=== PATIENT | male | born 1950 | race Caucasian/White ===

== ENCOUNTER → 2019-09-13 | Outpatient (CLI) | payer OTHER ==
[~2019-09-13] MED LIST: Bactrim 400-801 EACH PO; MAGOXI400 PO; METO25 PO; Multiple Vitam1 EAC1 PO; PANT40 PO; PRED5 PO; ROSU10TA PO; SODBIC650 PO; TACR1 PO; VITAMIN D32000 UNI1 PO; WARF2 PO
[2019-09-13 16:08] LABS: Creatinine Urine 46.9 mg/dL (27.00-270.00)
== END | disposition home or self-care (01) ==
LOC: OLS 14:44 → LAB SHORT 14:44 → LAB FUT 09-09 12:20
PROVIDERS: Internal Medicine
DX: N18.4 Chronic kidney disease, stage 4 (severe) (principal)
CPT/HCPCS: 81050; 82570; 84156

== ENCOUNTER 2019-09-20 12:47 | Inpatient (IN) | payer OTHER, MEDICARE ==
[~2019-09-20 12:47] MED LIST changes: -VITAMIN D32000 UNI1 PO; +Vitamin D2000 UNIT PO
[2019-09-20] MEDS ORDERED: Myfortic360 MG PO (13:17)
[2019-09-20] MEDS ORDERED: ALOGLIPTIN12.5 MG PO (13:18)
[2019-09-20 13:22] LABS: BASOPHILS ABSOLUTE AUTO 0.01 K/mm3 (0.00-0.23); BASOPHILS PERCENT AUTO 0 % (0-2); EOSINOPHILS ABSOLUTE AUTO 0.03 K/mm3 (0.00-0.68); EOSINOPHILS PERCENT AUTO 0 % (0-6); Hematocrit 25.4 % (37.0-53.0); Hemoglobin 8.1 g/dL (13.5-17.5); IMMATURE GRAN ABSOLUTE AUTO 0.05 K/mm3 (0.00-0.10); IMMATURE GRAN PERCENT AUTO 1 % (0-1); LYMPHOCYTES PERCENT AUTO 20 % (21-46); MONOCYTES ABSOLUTE AUTO 0.46 K/mm3 (0.16-1.47); MONOCYTES PERCENT AUTO 6 % (4-13); Mean Corpuscular HGB 30.8 pg (26.0-34.0); Mean Corpuscular HGB Conc 31.9 g/dL (31.5-36.5); Mean Corpuscular Volume 97 fL (80-100); Mean Platelet Volume 9.4 fL (9.1-12.4); NEUTROPHILS ABSOLUTE AUTO 5.53 K/mm3 (1.96-9.15); NEUTROPHILS PERCENT AUTO 73 % (41-73); Platelet Count 204 K/mm3 (150-400); RDW Coefficient Variation 14.5 % (11.7-14.2); RDW Standard Deviation 50.5 fL (35.1-46.3); Red Blood Cell Count 2.63 M/mm3 (4.30-5.90); White Blood Cell Count 7.58 K/mm3 (4.00-11.30)
[2019-09-20 13:37] LABS: International Normalized Ratio 2.33; Prothrombin Time Results 23.8 Sec (9.7-11.5)
[2019-09-20 13:41] LABS: Albumin, Blood 3.5 g/dL (3.4-5.0); Albumin/Globulin Ratio 1.2 (0.8-1.8); Bilirubin, Total 0.3 mg/dL (0.1-1.0); Calcium, Blood 7.9 mg/dL (8.5-10.1); Creatinine, Blood 5.63 mg/dL (0.60-1.20); Potassium, Blood 5.6 mmol/L (3.5-5.5); Total Protein, Blood 6.5 g/dL (6.4-8.2)
[2019-09-20 13:44] LABS: A. Partial Thromboplastin Time 36.2 Sec (25.0-34.0); Phosphorus, Blood 5.8 mg/dL (2.5-4.9)
[2019-09-20] MEDS ORDERED: WARF4 PO (14:20)
[2019-09-20] MEDS ORDERED: Coumadin2 MG PO ×2 (14:20→14:21)
[2019-09-20] MEDS ORDERED: TACROLIMUS0.5 MG PO (14:22)
[2019-09-20] MEDS ORDERED: TACR1 PO (14:22)
[2019-09-20] MEDS ORDERED: AMLODIPINE BES2.5 MG PO (14:24)
[2019-09-20 19:20] LABS: Albumin, Blood 3.4 g/dL (3.4-5.0); Anion Gap 13 mmol/L (6-16); Blood Urea Nitrogen 77 mg/dL (8-24); Bun/Creatinine Ratio 13.7 (12.0-20.0); CO2, Blood 17 mmol/L (21-32); Calcium, Blood 7.7 mg/dL (8.5-10.1); Chloride, Blood 110 mmol/L (98-108); Creatinine, Blood 5.61 mg/dL (0.60-1.20); Glomerular Filtration Rate 11 (60-); Glucose, Blood 156 mg/dL (70-99); Phosphorus, Blood 5.4 mg/dL (2.5-4.9); Potassium, Blood 5.1 mmol/L (3.5-5.5); Sodium, Blood 140 mmol/L (136-145)
[2019-09-21 00:21] LABS: Hematocrit 22.1 % (37.0-53.0); Hemoglobin 7.1 g/dL (13.5-17.5); Mean Corpuscular HGB 30.7 pg (26.0-34.0); Mean Corpuscular HGB Conc 32.1 g/dL (31.5-36.5); Mean Corpuscular Volume 96 fL (80-100); Mean Platelet Volume 9.6 fL (9.1-12.4); Platelet Count 176 K/mm3 (150-400); RDW Coefficient Variation 14.4 % (11.7-14.2); RDW Standard Deviation 50.2 fL (35.1-46.3); Red Blood Cell Count 2.31 M/mm3 (4.30-5.90); White Blood Cell Count 6.19 K/mm3 (4.00-11.30)
[2019-09-21 00:36] LABS: Albumin, Blood 3.1 g/dL (3.4-5.0); Anion Gap 12 mmol/L (6-16); Blood Urea Nitrogen 81 mg/dL (8-24); Bun/Creatinine Ratio 14.4 (12.0-20.0); CO2, Blood 17 mmol/L (21-32); Calcium, Blood 7.6 mg/dL (8.5-10.1); Chloride, Blood 110 mmol/L (98-108); Creatinine, Blood 5.63 mg/dL (0.60-1.20); Glomerular Filtration Rate 11 (60-); Glucose, Blood 109 mg/dL (70-99); Phosphorus, Blood 5.9 mg/dL (2.5-4.9); Potassium, Blood 4.7 mmol/L (3.5-5.5); Sodium, Blood 139 mmol/L (136-145)
[2019-09-21 00:47] LABS: A. Partial Thromboplastin Time 92.8 Sec (25.0-34.0)
[2019-09-21 10:34] LABS: International Normalized Ratio 1.97; Prothrombin Time Results 20.3 Sec (9.7-11.5)
[2019-09-21 10:38] LABS: A. Partial Thromboplastin Time 112.7 Sec (25.0-34.0)
[2019-09-21 18:36] LABS: A. Partial Thromboplastin Time 108.2 Sec (25.0-34.0)
[2019-09-22 01:02] LABS: A. Partial Thromboplastin Time 96.6 Sec (25.0-34.0)
[2019-09-22 08:28] LABS: BASOPHILS ABSOLUTE AUTO 0.02 K/mm3 (0.00-0.23); BASOPHILS PERCENT AUTO 0 % (0-2); EOSINOPHILS PERCENT AUTO 2 % (0-6); Hematocrit 26.9 % (37.0-53.0); IMMATURE GRAN ABSOLUTE AUTO 0.02 K/mm3 (0.00-0.10); IMMATURE GRAN PERCENT AUTO 0 % (0-1); LYMPHOCYTES ABSOLUTE AUTO 1.54 K/mm3 (0.84-5.20); LYMPHOCYTES PERCENT AUTO 24 % (21-46); MONOCYTES ABSOLUTE AUTO 0.58 K/mm3 (0.16-1.47); MONOCYTES PERCENT AUTO 9 % (4-13); Mean Corpuscular HGB 30.6 pg (26.0-34.0); Mean Corpuscular HGB Conc 33.5 g/dL (31.5-36.5); Mean Platelet Volume 9.4 fL (9.1-12.4); NEUTROPHILS ABSOLUTE AUTO 4.24 K/mm3 (1.96-9.15); NEUTROPHILS PERCENT AUTO 65 % (41-73); Platelet Count 185 K/mm3 (150-400); RDW Coefficient Variation 14.5 % (11.7-14.2); RDW Standard Deviation 48.7 fL (35.1-46.3); Red Blood Cell Count 2.94 M/mm3 (4.30-5.90)
[2019-09-22 08:31] LABS: Mean Corpuscular Volume 92 fL (80-100)
[2019-09-22 08:44] LABS: A. Partial Thromboplastin Time 74.7 Sec (25.0-34.0)
[2019-09-22 08:48] LABS: Albumin, Blood 3.2 g/dL (3.4-5.0); Albumin/Globulin Ratio 1.1 (0.8-1.8); Bilirubin, Total 0.6 mg/dL (0.1-1.0); Bun/Creatinine Ratio 13.9 (12.0-20.0); Calcium, Blood 7.9 mg/dL (8.5-10.1); Creatinine, Blood 5.4 mg/dL (0.60-1.20); Globulin, Blood 2.9 g/dL (2.2-4.0); Potassium, Blood 4.2 mmol/L (3.5-5.5); Total Protein, Blood 6.1 g/dL (6.4-8.2)
[2019-09-22 08:49] LABS: International Normalized Ratio 1.6; Prothrombin Time Results 16.7 Sec (9.7-11.5)
[2019-09-22 13:25] LABS: Stool Occult Blood Guaiac 1 Neg (Neg)
[2019-09-22 16:17] LABS: A. Partial Thromboplastin Time 69.1 Sec (25.0-34.0)
[2019-09-22 23:22] LABS: A. Partial Thromboplastin Time 61.2 Sec (25.0-34.0)
[2019-09-23 05:22] LABS: Hematocrit 25.2 % (37.0-53.0); Hemoglobin 8.3 g/dL (13.5-17.5); Mean Corpuscular HGB Conc 32.9 g/dL (31.5-36.5)
[2019-09-23 05:35] LABS: A. Partial Thromboplastin Time 57.1 Sec (25.0-34.0); International Normalized Ratio 1.42; Prothrombin Time Results 14.9 Sec (9.7-11.5)
[2019-09-23 05:49] LABS: Albumin, Blood 3.1 g/dL (3.4-5.0); Anion Gap 13 mmol/L (6-16); Blood Urea Nitrogen 71 mg/dL (8-24); Bun/Creatinine Ratio 13.1 (12.0-20.0); CO2, Blood 17 mmol/L (21-32); Calcium, Blood 7.7 mg/dL (8.5-10.1); Chloride, Blood 107 mmol/L (98-108); Creatinine, Blood 5.44 mg/dL (0.60-1.20); Glomerular Filtration Rate 11 (60-); Glucose, Blood 90 mg/dL (70-99); Phosphorus, Blood 5.2 mg/dL (2.5-4.9); Potassium, Blood 4.1 mmol/L (3.5-5.5); Sodium, Blood 137 mmol/L (136-145)
[2019-09-23 13:56] LABS: A. Partial Thromboplastin Time >139.0 Sec (25.0-34.0)
[2019-09-23 14:38] LABS: Hematocrit 27.1 % (37.0-53.0); Hemoglobin 9.2 g/dL (13.5-17.5); Mean Corpuscular HGB Conc 33.9 g/dL (31.5-36.5)
[2019-09-23 15:04] LABS: A. Partial Thromboplastin Time >139.0 Sec (25.0-34.0)
[2019-09-24 04:57] LABS: Hematocrit 25.2 % (37.0-53.0); Hemoglobin 8.3 g/dL (13.5-17.5); Mean Corpuscular HGB Conc 32.9 g/dL (31.5-36.5)
[2019-09-24 05:11] LABS: International Normalized Ratio 1.28; Prothrombin Time Results 13.5 Sec (9.7-11.5)
[2019-09-24 05:23] LABS: Anion Gap 10 mmol/L (6-16); Blood Urea Nitrogen 45 mg/dL (8-24); CO2, Blood 26 mmol/L (21-32); Calcium, Blood 8.1 mg/dL (8.5-10.1); Chloride, Blood 100 mmol/L (98-108); Creatinine, Blood 4.51 mg/dL (0.60-1.20); Glomerular Filtration Rate 14 (60-); Glucose, Blood 98 mg/dL (70-99); Phosphorus, Blood 5.3 mg/dL (2.5-4.9); Sodium, Blood 136 mmol/L (136-145)
[2019-09-24 05:31] LABS: A. Partial Thromboplastin Time 40.3 Sec (25.0-34.0)
[2019-09-24 11:38] LABS: BASOPHILS ABSOLUTE AUTO 0.01 K/mm3 (0.00-0.23); BASOPHILS PERCENT AUTO 0 % (0-2); EOSINOPHILS ABSOLUTE AUTO 0.08 K/mm3 (0.00-0.68); EOSINOPHILS PERCENT AUTO 1 % (0-6); Hematocrit 26.3 % (37.0-53.0); Hemoglobin 8.7 g/dL (13.5-17.5); IMMATURE GRAN ABSOLUTE AUTO 0.01 K/mm3 (0.00-0.10); IMMATURE GRAN PERCENT AUTO 0 % (0-1); LYMPHOCYTES ABSOLUTE AUTO 1.25 K/mm3 (0.84-5.20); LYMPHOCYTES PERCENT AUTO 17 % (21-46); MONOCYTES ABSOLUTE AUTO 0.79 K/mm3 (0.16-1.47); MONOCYTES PERCENT AUTO 11 % (4-13); Mean Corpuscular HGB 30.5 pg (26.0-34.0); Mean Corpuscular HGB Conc 33.1 g/dL (31.5-36.5); Mean Corpuscular Volume 92 fL (80-100); Mean Platelet Volume 9.5 fL (9.1-12.4); NEUTROPHILS ABSOLUTE AUTO 5.31 K/mm3 (1.96-9.15); NEUTROPHILS PERCENT AUTO 71 % (41-73); Platelet Count 140 K/mm3 (150-400); RDW Coefficient Variation 13.9 % (11.7-14.2); RDW Standard Deviation 47.3 fL (35.1-46.3); Red Blood Cell Count 2.85 M/mm3 (4.30-5.90); White Blood Cell Count 7.45 K/mm3 (4.00-11.30)
[2019-09-24 13:41] LABS: A. Partial Thromboplastin Time 49.5 Sec (25.0-34.0)
[2019-09-24 14:20] LABS: Adenovirus Not Detected (NOT DETECT); Bordetella pertussis Not Detected (NOT DETECT); Chlamydophila pneumoniae Not Detected (NOT DETECT); Coronavirus 229E Not Detected (NOT DETECT); Coronavirus HKU1 Not Detected (NOT DETECT); Coronavirus NL63 Not Detected (NOT DETECT); Coronavirus OC43 Not Detected (NOT DETECT); Human Metapneumovirus Not Detected (NOT DETECT); Human Rhinovirus/Enterovirus Not Detected (NOT DETECT); Influenza A/2009-H1 Not Detected (NOT DETECT); Influenza A/H1 Not Detected (NOT DETECT); Influenza A/H3 Not Detected (NOT DETECT); Influenza A/No Subtype Not Detected (NOT DETECT); Influenza B Not Detected (NOT DETECT); Mycoplasma pneumoniae Not Detected (NOT DETECT); Parainfluenza Virus 1 Not Detected (NOT DETECT); Parainfluenza Virus 2 Not Detected (NOT DETECT); Parainfluenza Virus 3 Not Detected (NOT DETECT); Parainfluenza Virus 4 Not Detected (NOT DETECT); Respiratory Syncytial Virus Not Detected (NOT DETECT)
[2019-09-24 20:46] LABS: A. Partial Thromboplastin Time 35.4 Sec (25.0-34.0)
[2019-09-25 06:50] LABS: Hematocrit 25.8 % (37.0-53.0); Hemoglobin 8.5 g/dL (13.5-17.5); Mean Corpuscular HGB Conc 32.9 g/dL (31.5-36.5)
[2019-09-25 07:09] LABS: Albumin, Blood 2.9 g/dL (3.4-5.0); Anion Gap 11 mmol/L (6-16); Blood Urea Nitrogen 35 mg/dL (8-24); Bun/Creatinine Ratio 8.1 (12.0-20.0); CO2, Blood 27 mmol/L (21-32); Calcium, Blood 7.9 mg/dL (8.5-10.1); Chloride, Blood 97 mmol/L (98-108); Creatinine, Blood 4.32 mg/dL (0.60-1.20); Glomerular Filtration Rate 15 (60-); Glucose, Blood 102 mg/dL (70-99); Potassium, Blood 3.8 mmol/L (3.5-5.5); Sodium, Blood 135 mmol/L (136-145)
[2019-09-25 11:54] LABS: A. Partial Thromboplastin Time 73.3 Sec (25.0-34.0); International Normalized Ratio 1.17; Prothrombin Time Results 12.4 Sec (9.7-11.5)
[2019-09-25 18:11] LABS: A. Partial Thromboplastin Time 63.3 Sec (25.0-34.0)
[2019-09-26 05:06] LABS: BASOPHILS ABSOLUTE AUTO 0.01 K/mm3 (0.00-0.23); BASOPHILS PERCENT AUTO 0 % (0-2); EOSINOPHILS ABSOLUTE AUTO 0.11 K/mm3 (0.00-0.68); EOSINOPHILS PERCENT AUTO 2 % (0-6); Hemoglobin 8.7 g/dL (13.5-17.5); IMMATURE GRAN ABSOLUTE AUTO 0.02 K/mm3 (0.00-0.10); IMMATURE GRAN PERCENT AUTO 0 % (0-1); LYMPHOCYTES ABSOLUTE AUTO 1.74 K/mm3 (0.84-5.20); LYMPHOCYTES PERCENT AUTO 25 % (21-46); MONOCYTES ABSOLUTE AUTO 0.78 K/mm3 (0.16-1.47); MONOCYTES PERCENT AUTO 11 % (4-13); Mean Corpuscular HGB 30.6 pg (26.0-34.0); Mean Corpuscular HGB Conc 33.5 g/dL (31.5-36.5); Mean Corpuscular Volume 92 fL (80-100); Mean Platelet Volume 9.6 fL (9.1-12.4); NEUTROPHILS ABSOLUTE AUTO 4.19 K/mm3 (1.96-9.15); NEUTROPHILS PERCENT AUTO 61 % (41-73); Platelet Count 147 K/mm3 (150-400); RDW Coefficient Variation 13.2 % (11.7-14.2); RDW Standard Deviation 43.8 fL (35.1-46.3); Red Blood Cell Count 2.84 M/mm3 (4.30-5.90); White Blood Cell Count 6.85 K/mm3 (4.00-11.30)
[2019-09-26 05:17] LABS: International Normalized Ratio 1.24; Prothrombin Time Results 13.1 Sec (9.7-11.5)
[2019-09-26 06:03] LABS: Bilirubin, Total 0.5 mg/dL (0.1-1.0); Bun/Creatinine Ratio 7.1 (12.0-20.0); Calcium, Blood 8.1 mg/dL (8.5-10.1); Creatinine, Blood 3.94 mg/dL (0.60-1.20); Globulin, Blood 2.9 g/dL (2.2-4.0); Potassium, Blood 3.9 mmol/L (3.5-5.5); Total Protein, Blood 5.9 g/dL (6.4-8.2)
[2019-09-26 09:21] LABS: A. Partial Thromboplastin Time 75.3 Sec (25.0-34.0)
[2019-09-27 06:13] LABS: A. Partial Thromboplastin Time 98.7 Sec (25.0-34.0); International Normalized Ratio 1.44; Prothrombin Time Results 15.1 Sec (9.7-11.5)
[2019-09-27 09:41] LABS: Hematocrit 24.1 % (37.0-53.0); Hemoglobin 8.1 g/dL (13.5-17.5); Mean Corpuscular HGB Conc 33.6 g/dL (31.5-36.5)
[2019-09-27 09:59] LABS: Anion Gap 13 mmol/L (6-16); Blood Urea Nitrogen 40 mg/dL (8-24); Bun/Creatinine Ratio 8.2 (12.0-20.0); CO2, Blood 26 mmol/L (21-32); Chloride, Blood 89 mmol/L (98-108); Creatinine, Blood 4.85 mg/dL (0.60-1.20); Glomerular Filtration Rate 13 (60-); Glucose, Blood 123 mg/dL (70-99); Phosphorus, Blood 6.5 mg/dL (2.5-4.9); Potassium, Blood 3.7 mmol/L (3.5-5.5); Sodium, Blood 128 mmol/L (136-145)
[2019-09-27 10:06] LABS: BASOPHILS ABSOLUTE AUTO 0.01 K/mm3 (0.00-0.23); BASOPHILS PERCENT AUTO 0 % (0-2); EOSINOPHILS ABSOLUTE AUTO 0.11 K/mm3 (0.00-0.68); EOSINOPHILS PERCENT AUTO 2 % (0-6); Hematocrit 24.4 % (37.0-53.0); Hemoglobin 8.2 g/dL (13.5-17.5); IMMATURE GRAN ABSOLUTE AUTO 0.03 K/mm3 (0.00-0.10); IMMATURE GRAN PERCENT AUTO 1 % (0-1); LYMPHOCYTES ABSOLUTE AUTO 1.53 K/mm3 (0.84-5.20); LYMPHOCYTES PERCENT AUTO 23 % (21-46); MONOCYTES ABSOLUTE AUTO 0.78 K/mm3 (0.16-1.47); MONOCYTES PERCENT AUTO 12 % (4-13); Mean Corpuscular HGB 30.7 pg (26.0-34.0); Mean Corpuscular HGB Conc 33.6 g/dL (31.5-36.5); Mean Corpuscular Volume 91 fL (80-100); Mean Platelet Volume 9.9 fL (9.1-12.4); NEUTROPHILS ABSOLUTE AUTO 4.15 K/mm3 (1.96-9.15); NEUTROPHILS PERCENT AUTO 63 % (41-73); Platelet Count 152 K/mm3 (150-400); RDW Standard Deviation 42.1 fL (35.1-46.3); Red Blood Cell Count 2.67 M/mm3 (4.30-5.90); White Blood Cell Count 6.61 K/mm3 (4.00-11.30)
[2019-09-27 13:59] LABS: A. Partial Thromboplastin Time 103.9 Sec (25.0-34.0)
[2019-09-27 21:23] LABS: A. Partial Thromboplastin Time 82.1 Sec (25.0-34.0)
[2019-09-28 04:14] LABS: BASOPHILS ABSOLUTE AUTO 0.02 K/mm3 (0.00-0.23); BASOPHILS PERCENT AUTO 0 % (0-2); EOSINOPHILS ABSOLUTE AUTO 0.05 K/mm3 (0.00-0.68); EOSINOPHILS PERCENT AUTO 1 % (0-6); Hematocrit 22.9 % (37.0-53.0); Hemoglobin 7.6 g/dL (13.5-17.5); IMMATURE GRAN ABSOLUTE AUTO 0.03 K/mm3 (0.00-0.10); IMMATURE GRAN PERCENT AUTO 1 % (0-1); LYMPHOCYTES ABSOLUTE AUTO 1.39 K/mm3 (0.84-5.20); LYMPHOCYTES PERCENT AUTO 22 % (21-46); MONOCYTES ABSOLUTE AUTO 0.84 K/mm3 (0.16-1.47); MONOCYTES PERCENT AUTO 13 % (4-13); Mean Corpuscular HGB 30.5 pg (26.0-34.0); Mean Corpuscular HGB Conc 33.2 g/dL (31.5-36.5); Mean Corpuscular Volume 92 fL (80-100); Mean Platelet Volume 9.8 fL (9.1-12.4); NEUTROPHILS ABSOLUTE AUTO 3.99 K/mm3 (1.96-9.15); NEUTROPHILS PERCENT AUTO 63 % (41-73); Platelet Count 138 K/mm3 (150-400); RDW Coefficient Variation 12.9 % (11.7-14.2); RDW Standard Deviation 43.4 fL (35.1-46.3); Red Blood Cell Count 2.49 M/mm3 (4.30-5.90); White Blood Cell Count 6.32 K/mm3 (4.00-11.30)
[2019-09-28 04:28] LABS: Albumin, Blood 2.8 g/dL (3.4-5.0); Anion Gap 8 mmol/L (6-16); Blood Urea Nitrogen 31 mg/dL (8-24); Bun/Creatinine Ratio 7.9 (12.0-20.0); CO2, Blood 29 mmol/L (21-32); Calcium, Blood 7.8 mg/dL (8.5-10.1); Chloride, Blood 95 mmol/L (98-108); Creatinine, Blood 3.91 mg/dL (0.60-1.20); Glomerular Filtration Rate 16 (60-); Glucose, Blood 99 mg/dL (70-99); Phosphorus, Blood 5.3 mg/dL (2.5-4.9); Sodium, Blood 132 mmol/L (136-145)
[2019-09-28 04:41] LABS: A. Partial Thromboplastin Time 93.7 Sec (25.0-34.0); International Normalized Ratio 1.72; Prothrombin Time Results 17.8 Sec (9.7-11.5)
[2019-09-28 11:16] LABS: Hematocrit 23.4 % (37.0-53.0); Hemoglobin 7.7 g/dL (13.5-17.5); Mean Corpuscular HGB Conc 32.9 g/dL (31.5-36.5)
[2019-09-28 11:29] LABS: A. Partial Thromboplastin Time 89.7 Sec (25.0-34.0)
[2019-09-28 18:50] LABS: A. Partial Thromboplastin Time 79.1 Sec (25.0-34.0)
[2019-09-29 01:24] LABS: A. Partial Thromboplastin Time 82.4 Sec (25.0-34.0); International Normalized Ratio 1.98; Prothrombin Time Results 20.4 Sec (9.7-11.5)
[2019-09-29 05:20] LABS: BASOPHILS ABSOLUTE AUTO 0.02 K/mm3 (0.00-0.23); BASOPHILS PERCENT AUTO 0 % (0-2); EOSINOPHILS ABSOLUTE AUTO 0.05 K/mm3 (0.00-0.68); EOSINOPHILS PERCENT AUTO 1 % (0-6); Hematocrit 22.8 % (37.0-53.0); Hemoglobin 7.5 g/dL (13.5-17.5); IMMATURE GRAN ABSOLUTE AUTO 0.02 K/mm3 (0.00-0.10); IMMATURE GRAN PERCENT AUTO 0 % (0-1); LYMPHOCYTES ABSOLUTE AUTO 1.38 K/mm3 (0.84-5.20); LYMPHOCYTES PERCENT AUTO 20 % (21-46); MONOCYTES ABSOLUTE AUTO 0.82 K/mm3 (0.16-1.47); MONOCYTES PERCENT AUTO 12 % (4-13); Mean Corpuscular HGB 30.9 pg (26.0-34.0); Mean Corpuscular HGB Conc 32.9 g/dL (31.5-36.5); Mean Corpuscular Volume 94 fL (80-100); Mean Platelet Volume 10.6 fL (9.1-12.4); NEUTROPHILS ABSOLUTE AUTO 4.75 K/mm3 (1.96-9.15); NEUTROPHILS PERCENT AUTO 68 % (41-73); Platelet Count 169 K/mm3 (150-400); RDW Coefficient Variation 13.1 % (11.7-14.2); RDW Standard Deviation 45.1 fL (35.1-46.3); Red Blood Cell Count 2.43 M/mm3 (4.30-5.90); White Blood Cell Count 7.04 K/mm3 (4.00-11.30)
[2019-09-29 10:55] LABS: A. Partial Thromboplastin Time 96.8 Sec (25.0-34.0)
[2019-09-29] MEDS ORDERED: SEVEC800 PO (12:24)
== END 2019-09-29 14:44 | disposition home or self-care (01) | DRG 673 ==
PROVIDERS: Emergency Medicine; Internal Medicine; Pharmacist; Physician Assistant
PROC: 0JH63XZ Insertion of Tunneled Vascular Access Device into Chest Subcutaneous Tissue and Fascia, Percutaneous Approach (ICD-10-PCS; principal; 2019-09-23)
PROC: 02HV33Z Insertion of Infusion Device into Superior Vena Cava, Percutaneous Approach (ICD-10-PCS; 2019-09-23)
PROC: B5181ZA Fluoroscopy of Superior Vena Cava using Low Osmolar Contrast, Guidance (ICD-10-PCS; 2019-09-23)
PROC: 5A1D70Z Performance of Urinary Filtration, Intermittent, Less than 6 Hours Per Day (ICD-10-PCS; 2019-09-23)
PROC: 8E0ZXY6 Isolation (ICD-10-PCS; 2019-09-24)
DX: I12.0 Hypertensive chronic kidney disease with stage 5 chronic kidney disease or end stage renal disease (principal); N18.6 End stage renal disease; Z94.2 Lung transplant status; N17.9 Acute kidney failure, unspecified; Z87.891 Personal history of nicotine dependence; E13.22 Other specified diabetes mellitus with diabetic chronic kidney disease; E87.5 Hyperkalemia; E83.39 Other disorders of phosphorus metabolism; D63.1 Anemia in chronic kidney disease; Z79.01 Long term (current) use of anticoagulants; Z20.828 Contact with and (suspected) exposure to other viral communicable diseases; Z86.711 Personal history of pulmonary embolism; Z86.718 Personal history of other venous thrombosis and embolism

== ENCOUNTER 2020-01-28 10:49 | Day surgery (SDC) | payer OTHER, MEDICARE ==
[~2020-01-28] VITALS: Ht 180.3 cm; Wt 85.0 kg
[~2020-01-28 10:49] MED LIST changes: +ALOGLIPTIN12.5 MG PO; +AMLODIPINE BES2.5 MG PO; +AZAT50 PO; +CALC.25 PO; +Coumadin2 MG PO; +Myfortic360 MG PO; +PEPCID40 MG PO; +SEVEC800 PO; +TACROLIMUS0.5 MG PO; +WARF4 PO; +[UNRECOGNIZED DRUG - OTHER] INH
--- NOTE | 2020-01-28 14:25 | NUR ---
Pt received from Dev RN Pt alert and oriented. VSS Left fistula site with + bruit and thrill, small cloth dot on site. + Left radial pulse. Pt with HOB 40% taken po fluids and food. Pt denies pain. IV HL #22 right hand. Call light given Pita at bedside. Dr. Sheth spoke with patient.
--- NOTE | 2020-01-28 15:49 | NUR ---
Pt was getting dressed when a small hematoma arised from left fistula site. I immediatley put light pressure and reduced the hematoma that was < then [address] Wood made aware of the hematoma. No Plavix ordered since pt is on Coumadin. He will start first dose tonight as it is his regular schedule. Pt continues to have a good bruit and thrill. He has eaten his lunch & has had coffee and other drinks. at bedside.
--- NOTE | 2020-01-28 16:18 | NUR ---
sbar to Dev Jean Baptiste RN. Pt stable no bleeding, hematoma flatten stable. IV removed cath intact #22.
--- NOTE | 2020-01-28 16:32 | NUR ---
PT L ARM AVF SITE REMAINS UNCHANGED, SWOLLEEN AREA REMAINS SOFT AND WITHIN MAPPED AREA. PT AND VERBALIZE GOOD UNDERSTANDING OF DISCHARGE INSTRUCTIONS AND S/S OF BLEEDING TO MONITOR FOR. PT LEFT FACILITY VIA W/C, CONDITION STABLE.
== END 2020-01-28 16:32 | disposition home or self-care (01) ==
LOC: MHTC 10:49
DX: I12.0 Hypertensive chronic kidney disease with stage 5 chronic kidney disease or end stage renal disease (principal); N18.6 End stage renal disease; J44.9 Chronic obstructive pulmonary disease, unspecified; D63.1 Anemia in chronic kidney disease; Z79.899 Other long term (current) drug therapy; Z99.2 Dependence on renal dialysis; Z94.2 Lung transplant status
CPT/HCPCS: 64415; 76937; 99152; 99153; C1725; C1769; C1889; C1894; G2170; J1644; J2250; J3010; J7030; J7040

== ENCOUNTER 2020-09-03 08:57 | Day surgery (SDC) | payer OTHER ==
[~2020-09-03] VITALS: Ht 180.3 cm; Wt 79.9 kg
[~2020-09-03 08:57] MED LIST changes: +DOCU100 PO; +GABA300 PO; +MIRALAX17 GM PO; +OMEP20ER PO; +PENTAMIDINE INH; +SENNA LAXATIVE8.6 MG PO; +TAMS.4ER PO; +[UNRECOGNIZED DRUG - OTHER] INH; +[UNRECOGNIZED DRUG - OTHER] PO
--- NOTE | 2020-09-03 10:36 | NUR ---
Ambulatory in Day Surgery Surgical site prepped with 2% Chlorhexidine cloth wipe. History, Chart, Medications and Allergies reviewed before start of procedure.Lungs clear T/O to Auscultation. Patient confirms NPO status and agrees with scheduled surgery. Pre-Op teaching done. Pt verbalizes understanding.
--- NOTE | 2020-09-03 11:56 | NUR ---
ANESTHESIA [place] [facility] LATHING SUPERVISOR Jose. REPORTED THAT ANESTHIA REPORTED WOULD GIVE IN OR INSTEAD OF WAITING FOR PHARMACY TO VERIFY. PT MED WITH VERSED AND TAKEN BACK TO OR VIA MYCHAL.
== END 2020-09-03 23:27 | disposition home or self-care (01) ==
LOC: ORSCMMR 08:57 → ORD 10:15 → ORSCMMR 10:15
PROVIDERS: Surgery
PROC: 0WUF0JZ Supplement Abdominal Wall with Synthetic Substitute, Open Approach (ICD-10-PCS; principal; 2020-09-03 10:15)
DX: K43.9 Ventral hernia without obstruction or gangrene (principal); I10 Essential (primary) hypertension; I48.91 Unspecified atrial fibrillation; Z79.01 Long term (current) use of anticoagulants; E78.5 Hyperlipidemia, unspecified; J44.9 Chronic obstructive pulmonary disease, unspecified; Z94.2 Lung transplant status; Z94.0 Kidney transplant status; Z79.899 Other long term (current) drug therapy
CPT/HCPCS: 82947; C1781; J0690; J1720; J2250; J2405; J2704; J2710; J3010; J7120

== ENCOUNTER → 2022-02-07 | Outpatient (CLI) | payer OTHER | LOC: LAB SHORT 09:00 → LAB 09:00 | DX: L08.9 Local infection of the skin and subcutaneous tissue, unspecified (principal) | CPT/HCPCS: 87070; 87205 ==

== ENCOUNTER → 2022-05-23 | Outpatient (CLI) | payer OTHER | LOC: LAB SHORT 10:00 | DX: L08.9 Local infection of the skin and subcutaneous tissue, unspecified (principal); L28.0 Lichen simplex chronicus; L21.8 Other seborrheic dermatitis | CPT/HCPCS: 87070; 87205 ==

== ENCOUNTER 2022-09-15 07:38 | Day surgery (SDC) | payer OTHER ==
[~2022-09-15] VITALS: Ht 180.3 cm; Wt 87.9 kg
[2022-09-15] MEDS ORDERED: PANT40 (08:34)
[2022-09-15] MEDS ORDERED: ELIQUIS5 M2 (08:34)
[2022-09-15 10:12] VITALS: BP 95/71
== END 2022-09-15 10:25 | disposition home or self-care (01) ==
LOC: ORSCSDS 07:38
PROVIDERS: Surgery
PROC: 0DJD8ZZ Inspection of Lower Intestinal Tract, Via Natural or Artificial Opening Endoscopic (ICD-10-PCS; principal; 2022-09-15 09:00)
DX: Z12.11 Encounter for screening for malignant neoplasm of colon (principal); Z86.010 Personal history of colon polyps; I48.0 Paroxysmal atrial fibrillation; I10 Essential (primary) hypertension; E78.5 Hyperlipidemia, unspecified; Z94.2 Lung transplant status; J44.9 Chronic obstructive pulmonary disease, unspecified; Z94.0 Kidney transplant status; N18.6 End stage renal disease; D84.9 Immunodeficiency, unspecified; Z86.718 Personal history of other venous thrombosis and embolism; Z79.899 Other long term (current) drug therapy; Z79.01 Long term (current) use of anticoagulants; Z87.891 Personal history of nicotine dependence
CPT/HCPCS: 82947; J2704; J7120

== ENCOUNTER → 2024-01-04 | Outpatient (CLI) | payer OTHER ==
[~2024-01-04] MED LIST changes: +ELIQUIS5 M2; +PANT40
[2024-01-04 13:49] LABS: Protein, Urine Quantitative 11.5 mg/dL (0.0-11.9)
== END ==
LOC: LAB 10:51 → LAB SHORT 10:51 → LAB FUT 01-01 10:25
PROVIDERS: Internal Medicine Nephrology
DX: N25.1 Nephrogenic diabetes insipidus (principal); N18.2 Chronic kidney disease, stage 2 (mild); D63.1 Anemia in chronic kidney disease; E78.00 Pure hypercholesterolemia, unspecified; R76.9 Abnormal immunological finding in serum, unspecified; M10.9 Gout, unspecified; N25.81 Secondary hyperparathyroidism of renal origin; G60.9 Hereditary and idiopathic neuropathy, unspecified; R94.5 Abnormal results of liver function studies; Z94.0 Kidney transplant status
CPT/HCPCS: 81050; 84156